=== PATIENT | female | born 1990 | race Two or more races ===

== ENCOUNTER 2016-08-04 06:56 | Emergency (ER) | payer OTHER ==
[~2016-08-04] VITALS: Ht 144.8 cm; Wt 81.6 kg
[2016-08-04] MEDS ORDERED: NKM (07:06)
[2016-08-04] MEDS ORDERED: IBUPROFEN600 MG ORAL (08:09)
[2016-08-04 08:24] VITALS: BP 123/80
--- NOTE | 2016-08-04 09:04 | Emergency Room Report ---
History of Present Illness General Chief Complaint: Lower Extremity Injury Source: Patient Present Illness HPI Patient reports a heavy box with candles falling on her left foot this morning approximately 5:15 Patient had continued pain to the small toe on the left foot And presents for further eval Pain is 4/10 worse with ambulation Denies any cuts or laceration denies any ankle pain Allergies: Coded Allergies: No Known Allergies (Unverified , 08/04/16) Patient History Past Medical History: see triage record Pertinent Family History: none Last Menstrual Period: July Reviewed Nursing Documentation: PMH: Agreed, PSxH: Agreed Nursing Documentation-PMH Past Medical History: No Stated History Review of Systems All Other Systems: negative except mentioned in HPI Physical Exam Vital Signs Date Time Temp Pulse Resp B/P Pulse Ox O2 Delivery O2 Flow Rate FiO2 08/04/16 07:01 98.2 90 16 130/80 100 Room Air Sp02 EP Interpretation: reviewed, normal General Appearance: no apparent distress Head: normocephalic, atraumatic Eyes: bilateral eye EOMI, bilateral eye PERRL ENT: normal pharynx Neck: full range of motion, supple Respiratory: lungs clear Musculoskeletal: other - Patient is tender on palpation of the left small toe mild erythema also noted, Neurologic: normal inspection, alert, oriented x3, responsive Skin: other - As above Lymphatic: no adenopathy Procedures Splinting Progress But he taking was performed on the small toe, and adjacent to Patient placed in a postop shoe Patient remains neurovascularly intact on recheck by myself This does improve stabilization Medical Decision Making Diagnostic Impression: Primary Impression: toe fracture ER Course Given the patient's history exam and imaging study patient had acute intervention performed Patient requires close outpatient followup And pain control Other X-Ray Diagnostic Results Other X-Ray Diagnostic Results : EP Interpretation: Yes Findings: no dislocation, no soft tissue swelling, other - Distal fifth phalangeal fracture Number of Views: 3 - left foot Last Vital Signs Date Time Temp Pulse Resp B/P Pulse Ox O2 Delivery O2 Flow Rate FiO2 08/04/16 08:24 84 16 123/80 100 Room Air 08/04/16 07:01 98.2 Status: improved Disposition: HOME, SELF-CARE Condition: Improved Scripts Ibuprofen* (MOTRIN*) 600 Mg Tablet 600 MG ORAL Q8H Y for For Pain, #20 TAB 0 Refills Prov: SEBASTIAN BERNARD D.O. 08/04/16 Referrals: NOT CHOSEN IPA/MD,REFERRING (PCP) Patient Instructions: Toe Fracture, [id number] Additional Instructions: Patient is provided with the discharge instructions notified to follow up with primary doctor in the next 2-3 days otherwise return to the er with any worsening symptoms. Please note that this report is being documented using DRAGON technology. This can lead to erroneous entry secondary to incorrect interpretation by the dictating instrument. SEBASTIAN BERNARD D.O. Aug 04, 2016 09:04
--- NOTE | 2016-08-04 10:14 | Diagnostic Imaging Report ---
Indication: Pain Comparison: None Findings: 3 views of the left foot were obtained. No acute fractures, malalignment, erosions or periostitis are identified. Bone mineralization is within normal limits. Soft tissues are unremarkable. Impression: No acute findings
== END 2016-08-04 08:24 | disposition home or self-care (01) ==
LOC: EMR 07:19
DX: S92.532A Displaced fracture of distal phalanx of left lesser toe(s), initial encounter for closed fracture (principal); W20.8XXA Other cause of strike by thrown, projected or falling object, initial encounter; Y92.512 Supermarket, store or market as the place of occurrence of the external cause; Y99.0 Civilian activity done for income or pay
CPT/HCPCS: 99283